=== PATIENT | female | born 1965 | race Caucasian/White ===

== ENCOUNTER → 2016-12-31 | Outpatient (CLI) | payer BC, OTHER ==
[~2016-12-31] MED LIST: ALLERGY SYRING1 EAC1 MC; BYSTOLIC5 MG PO; DULERA 100 MCG8.8 GM INH; FLONASE 0.05% N16 GM; GUAIFENESIN400 MG PO; MINIMED RESERV1 EACH SQ; QVAR8.7 G1 INH; SINGULAIR10 MG PO; SUDAFED 12 HOU120 MG PO; SYNTHROID175 MCG PO; VENTOLIN/PROVE0.5 ML INH; VITAMIN D5000 UNIT PO; WELLBUTRIN 75 M75 MG PO; XYZAL5 MG PO
== END ==
LOC: HEART 5 09:26
DX: R06.00 Dyspnea, unspecified (principal); R53.83 Other fatigue; I10 Essential (primary) hypertension; E10.9 Type 1 diabetes mellitus without complications; R07.9 Chest pain, unspecified; E78.5 Hyperlipidemia, unspecified; G47.30 Sleep apnea, unspecified
CPT/HCPCS: 78452; 93306; A9502; J2785

== ENCOUNTER → 2020-11-11 | Outpatient (CLI) | payer BC, MEDICARE, OTHER ==
[~2020-11-11] MED LIST changes: +BUPROPION XL300 MG PO; +COZAAR25 MG PO; +CRESTOR10 MG PO; +HUMALOG SC; +MUCUS RELIEF400 MG PO; +PATANOL OP SOLN5 ML OP; +STAHIST AD TAB1 EACH PO; +SYNTHROID150 MCG PO; +TRINTELLIX PO
== END ==
LOC: EXRD 14:30
DX: R13.10 Dysphagia, unspecified (principal)
CPT/HCPCS: 76536

== ENCOUNTER 2021-07-11 07:21 | Emergency (ER) | payer BC, MEDICARE ==
[2021-07-11 08:29] LABS: HEMOGLOBIN 13.1 gm/dl (12.3-15.3); RED BLOOD COUNT 4.62 M/UL (4.00-5.10); WHITE BLOOD COUNT 9.9 K/UL (4.5-11.0)
[2021-07-11 09:05] LABS: BUN/CREATININE RATIO 12 (0-10)
[2021-07-11] MEDS ORDERED: BENTYL 20MG TAB20 MG PO (12:09)
== END 2021-07-11 12:22 | disposition home or self-care (01) ==
LOC: ER1 07:21
PROVIDERS: Physician Assistant
DX: R10.31 Right lower quadrant pain (principal); E11.9 Type 2 diabetes mellitus without complications; I10 Essential (primary) hypertension; E03.9 Hypothyroidism, unspecified; Z88.2 Allergy status to sulfonamides; Z88.0 Allergy status to penicillin
CPT/HCPCS: 80053; 81001; 83690; 85025; 96374; 96375; 99284; J1885; J2270; J2405; Q9967

== ENCOUNTER → 2021-11-10 | Outpatient (CLI) | payer BC, MEDICARE ==
[~2021-11-10] MED LIST changes: +BENTYL 20MG TAB20 MG PO
== END ==
LOC: EXRD 11:28
DX: R05.9 Cough, unspecified (principal); J02.9 Acute pharyngitis, unspecified
CPT/HCPCS: 71046

== ENCOUNTER → 2022-06-29 | Outpatient (CLI) | payer BC, MEDICARE | LOC: MAMO 06-09 15:00 → RAD 10:59 | DX: Z12.31 Encounter for screening mammogram for malignant neoplasm of breast (principal); R06.02 Shortness of breath | CPT/HCPCS: 71046; 77063; 77067 ==

== ENCOUNTER → 2022-07-01 | Outpatient (CLI) | payer BC, MEDICARE ==
[2022-07-01 07:51] LABS: HEMOGLOBIN 12.7 gm/dl (12.3-15.3); RED BLOOD COUNT 4.45 M/UL (4.00-5.10); WHITE BLOOD COUNT 8.5 K/UL (4.5-11.0)
[2022-07-01 08:25] LABS: BUN/CREATININE RATIO 12 (0-10)
[2022-07-02 11:14] LABS: CREATININE, URINE 178.7 mg/dL (Not Estab.)
== END ==
LOC: LAB 06:29
PROVIDERS: Nurse Practitioner Family
DX: M54.9 Dorsalgia, unspecified (principal); R30.0 Dysuria; R53.83 Other fatigue; R06.02 Shortness of breath; E10.9 Type 1 diabetes mellitus without complications; N28.9 Disorder of kidney and ureter, unspecified; J30.9 Allergic rhinitis, unspecified; M25.50 Pain in unspecified joint; G56.00 Carpal tunnel syndrome, unspecified upper limb; K59.09 Other constipation; E78.5 Hyperlipidemia, unspecified; E03.9 Hypothyroidism, unspecified; E53.8 Deficiency of other specified B group vitamins; E55.9 Vitamin D deficiency, unspecified
CPT/HCPCS: 36415; 80053; 80061; 82043; 82570; 82607; 83036; 83880; 84439; 84443; 85025; 85379; 87086